=== PATIENT | male | born 1955 | race Caucasian/White ===

== ENCOUNTER 2019-01-03 08:50 | Day surgery (SDC) | payer BC ==
[2019-01-03] MEDS ORDERED: PROPOFOL 40 ML (11:19)
[2019-01-03] MEDS ORDERED: LIDOCAINE 2% (SDV) 5 ML INJ (11:19)
[2019-01-03] MEDS ORDERED: morphine 2 MG INJ IV (11:30)
== END 2019-01-03 13:38 | disposition home or self-care (01) ==
LOC: GIL 08:50
DX: Z12.11 Encounter for screening for malignant neoplasm of colon (principal); D12.8 Benign neoplasm of rectum; D12.5 Benign neoplasm of sigmoid colon; K64.9 Unspecified hemorrhoids
CPT/HCPCS: 45380; 88305